=== PATIENT | female | born 1960 | race Caucasian/White ===

== ENCOUNTER 2023-06-04 08:58 | Day surgery (SDC) | payer BC, MEDICARE, SELFPAY ==
--- NOTE | 2023-06-04 | PATH_ITS ---
[facility] Accession Number: [id number] No. of containers..02 Tissue . 01 Material submitted: . PART A: sigmoid colon - SIGMOID PART B: colon - DESCENDING POLYP . 01 Diagnosis: A- COLON, SIGMOID, BIOPSY: - Tubular adenoma B- COLON, DESCENDING, POLYP BIOPSY: - Tubular adenoma - Negative for high grade dysplasia, no definitive evidence of invasion (see comment). COMMENT FOR PART B (COLON DESCENDING POLYP): Multiple levels of the polyp was examined and shows tubular adenoma without high grade dysplasia, however the dysplastic glands are pushing within the muscularis mucosa with slight stromal reaction, while there is no definitive evidence of invasion, a close follow up with colonoscopy is warranted. These findings are reported verbally to Nata Pavon at [facility] to report to Carissa Rios on 06/10/2023 at 3: 20 PM. TXN 06/10/2023 1534 Local . 01 Electronically signed: . Tawfeq MD Yamileth, Pathologist NPI- [id number] . 01 Gross description: . Part A: SIGMOID : Received in formalin are 2 fragment(s) of choe, soft tissue measuring 0.3 x 0.1 x 0.1 cm to 0.4 x 0.3 x 0.2 cm submitted entirely in 1 cassette(s) Part B: DESCENDING POLYP: Received in formalin is 1 fragment of choe soft tissue measuring 0.9 x 0.7 x 0.7 cm. Specimen is sectioned and submitted in its entirety in 1 cassette. /SILVIA 06/08/2023 1918 Local . 01 Pathologist provided ICD-10: Z12.11 . 01 CPT . 505901, [id number] Specimen Comment: A courtesy copy of this report has been sent to [phone] Performed at: 01 [facility] [address] [facility], [place], [place] [id number] MD Bharathi Espinoza MD Phone: [phone]
[2023-06-04 09:17] VITALS: BP 118/82; PULSE 67; RESP 16; TEMP 36.3; O2SAT 99; BMI 29.2
[2023-06-04] MEDS: LACTATED RINGERS 1,000 ML 150 ML IV (09:39)
--- NOTE | 2023-06-04 10:13 | PM.HP.1 ---
History of Present Illness History of Present Illness Date Patient Seen: 06/04/23 Time Patient Seen: 10:13 [place] [facility] [place]: Colon cancer screening. This is her 1st colonoscopy. She is unaware of any family history for colon cancer. She has no current symptoms PFSH Social History household members: spouse Smoking Status: Current every day smoker alcohol intake: current Meds Home Medications and Allergies Home Medications Medication Instructions Recorded Confirmed Type gabapentin 300 mg capsule 600 mg PO TID ##0 02/02/17 06/04/23 History (Neurontin) hydrochlorothiazide 12.5 mg capsule 12.5 mg PO QDAY ##0 02/02/17 06/04/23 History metoprolol tartrate 50 mg tablet 50 mg PO QDAY ##0 02/02/17 06/04/23 History sodium,potassium,mag sulfates 17.5 See Rx Instructions PO .COMPLEX 04/22/23 06/04/23 Rx gram-3.13 gram-1.6 gram oral soln #354 mL (Suprep Bowel Prep Kit) trazodone 50 mg tablet 50 - 100 mg PO ONCE PM PRN insomnia 06/04/23 06/04/23 History Allergies Allergy/AdvReac Type Severity Reaction Status Date / Time codeine [CODEINE] AdvReac Unknown Verified 06/04/23 09:39 Review of Systems Review of Systems ROS: Yes All systems reviewed with the patient and are negative except as otherwise documented Exam Vital Signs (past 8 hours): - 06/04/23 09:17 Temperature 97.4 F L Pulse Rate 67 Respiratory Rate 16 Blood Pressure 118/82 Pulse Oximetry 99 Oxygen Delivery Method Room Air Oxygen Delivery Method Room Air Const General: cooperative and healthy appearing Nutritional Appearance: well nourished [facility] Head: normocephalic and atraumatic Ears: hearing grossly normal bilaterally Eyes Sclera: sclerae normal Neck Neck: trachea midline Resp Effort & Inspection: normal respiratory effort and able to speak in complete sentences Cardio Rate: regular rate Rhythm: regular rhythm Skin General: elasticity normal and turgor normal Neuro General: patient alert, patient awake and patient oriented x3 Cranial Nerves: tongue midline Psych Mental Status: mental status grossly normal Judgment: judgment good Assessment & Plan Assessment & Plan narrative: Colon cancer screening. Colonoscopy with anesthesia Time Spent With Patient Time with patient: less than 30 minutes
--- NOTE | 2023-06-04 11:17 | PM.OP.COLON ---
Operative Date/Time/Diagnoses Date of procedure: 06/04/23 Time of procedure: 11:17 Pre-op diagnosis: Colon cancer screening Post-op diagnosis: same Procedure & Clinicians Study performed: Colonoscopy with cold forceps polypectomy and cold snare polypectomy With anesthesia Same procedure as scheduled: Yes Indications: Colon cancer screening Surgeon: Jaqueline Harper Procedure Notes Procedure in detail: Preop diagnosis: Colon cancer screening Postop diagnosis: Same Operative procedure: Colonoscopy with cold forceps polypectomy and cold snare polypectomy with anesthesia Findings: Sigmoid colon polyp approximate 0.2 cm. Descending colon polyp 1 cm in size. Moderate diverticulosis of the sigmoid colon and scant diverticuli in the right colon. Single lipoma in the ascending colon 2 cm in size, submucosal. Procedure: Patient placed in a lateral position. Rectal exam performed showing normal tone no masses. Colonoscope inserted into the rectum and advanced to ileocecal valve with minimal difficulty. Insufflation extraction scope of the above findings. Retroflex was included in the rectum. Impression: 2 polyps in the descending colon 1 taken with cold forceps that was 2 mm in size and sessile. The other is pedunculated proximally 1 cm in size taken with a cold snare. Diverticulosis in the sigmoid colon as well as the right colon. Plan: Repeat colonoscopy in 5 years unless otherwise indicated by change in clinical condition Findings: divertiulosis and polyp(s) (Two polyps in the descending colon described above) Specimen(s): other (2 descending colon polyps 1st was 2 mm taken with cold forceps, 2nd was 1 cm taken with a cold snare) Complications: none Impression: Diverticulosis of the sigmoid colon which was moderate as well as a scant diverticulosis of the right colon. To descending polyps. One lipoma of the ascending colon approximately 2 cm in size. Plan: Repeat colonoscopy in 5 years Post-procedure Recommendations: Colonoscopy in 5 years Follow up: as needed Disposition: PACU
[2023-06-04 11:23] VITALS: BP 100/75; PULSE 75; RESP 19; TEMP 37; O2SAT 97
[2023-06-04 11:28] VITALS: BP 113/68; PULSE 69; RESP 14; O2SAT 95
[2023-06-04 11:33] VITALS: BP 118/71; PULSE 66; RESP 18; O2SAT 95
[2023-06-04 11:35] VITALS: BP 114/72; PULSE 67; RESP 19; TEMP 36.7; O2SAT 96
== END 2023-06-04 11:52 | disposition home or self-care (01) ==
PROVIDERS: PCP Family Medicine; Referring Provider Surgery; Visit Provider Anesthesiology
PROC: 0DJD8ZZ Inspection of Lower Intestinal Tract, Via Natural or Artificial Opening Endoscopic (ICD-10-PCS; CPT 45378; principal; 2023-06-04 10:15)
DX: Z12.11 Encounter for screening for malignant neoplasm of colon (principal); K57.30 Diverticulosis of large intestine without perforation or abscess without bleeding; D12.5 Benign neoplasm of sigmoid colon; D12.4 Benign neoplasm of descending colon
CPT/HCPCS: 45385; 45380; J2250; J3010

== ENCOUNTER → 2023-07-22 14:42 | Outpatient (CLI) | payer MEDICARE, SELFPAY ==
--- NOTE | 2023-07-22 | DI.MG.S_ITS ---
BILATERAL DIGITAL SCREENING MAMMOGRAM 3D/2D WITH CAD: 07/22/2023 CLINICAL: Routine screening. Comparison is made to exams dated: 12/15/2017 mammogram, 10/05/2013 mammogram, and 07/22/2012 mammogram - [facility]. There are scattered areas of fibroglandular density in both breasts (category b / 25%-50% glandular tissue). Current study was also evaluated with a Computer Aided Detection (CAD) system. No significant masses, calcifications, or other findings are seen in either breast. There has been no significant interval change. IMPRESSION: NEGATIVE There is no mammographic evidence of malignancy. A 1 year screening mammogram is recommended. Based on the Tyrer Cuzick model (a risk assessment model) the patient's lifetime risk is 6.1% and her 10 year risk is 2.7%. According to the ACR, ACS, and NCCN guidelines, an annual breast MRI exam along with mammogram is recommended if the patient's lifetime risk is 20% or greater. This exam was interpreted at Station ID: [id number]. NOTE: For mammograms, a report in lay terms will be sent to the patient. Approximately 15% of breast malignancies will not be visualized mammographically. In the management of a palpable breast mass, a negative mammogram must not discourage biopsy of a clinically suspicious lesion. Electronically Signed By: Nick nava/gamaliel:07/23/2023 07:14:07 letter sent: Normal Exam ACR BI-RADS Category 1: Negative [id number]
== END ==
PROVIDERS: PCP Family Medicine; Referring Provider Family Medicine; Visit Provider Family Medicine
DX: Z12.31 Encounter for screening mammogram for malignant neoplasm of breast (principal)
CPT/HCPCS: 77063; 77067

== ENCOUNTER → 2024-09-12 10:40 | Outpatient (CLI) | payer MEDICARE, SELFPAY ==
--- NOTE | 2024-09-12 10:42 | DI.US.S_ITS ---
PROCEDURE: US PELVIC COMPLETE INDICATIONS: DYSFUNCTIONAL UTERINE BLEEDING TECHNIQUE: Real-time scanning was performed of the pelvic organs, with image documentation. Additional endovaginal scanning was necessary due to incomplete visualization of the adnexal and endometrial structures by transabdominal scanning. COMPARISON: None. FINDINGS: Uterus: Uterus is retroverted and normal in size at 7.1 x 4.9 x 4.4 cm. The myometrium is heterogeneous. The endometrium measures 13 mm combined thickness. There is a heterogeneous, vascular lesion abutting the left side of the endometrium measuring approximately 1.6 x 1.8 x 1.8 cm. This may represent a small endometrial lesion versus a submucosal uterine fibroid. Ovaries: The right ovary measures 2.2 x 1.8 x 0.9 cm, with a calculated ovarian volume of 2.0 cc. The left ovary measures 2.4 x 1.5 x 1.0 cm, with a calculated ovarian volume of 2.0 cc. The ovaries have a normal sonographic appearance. Less than 12 follicles can be seen in each ovary. No adnexal masses are seen. Other: No pathologic free abdominal or pelvic fluid. Incidental note of large postvoid residual volume of 111 mL. Bilateral ureteral jets were visualized. IMPRESSION: Heterogeneous uterus with history of abnormal uterine bleeding. If patient is postmenopausal, endometrial thickness of 13 mm is abnormal and further evaluation with endometrial sampling/biopsy is recommended. Heterogeneous, 1.6 x 1.8 cm vascular lesion within the left side of the endometrium possibly representing a submucosal uterine fibroid versus small endometrial mass. Consider follow-up pelvic ultrasound in 6-12 weeks to document persistence. Further characterization with pelvic MRI can be considered at that time. Incidental note of large postvoid residual volume of the urinary bladder measuring 111 mL. We strive to produce accurate, complete, and clear reports of imaging services. To assist us in improving patient care, this report was composed using standard report templates and voice recognition software. Therefore, it may contain abnormal punctuation, insertions and/or omissions. Occasional wrong-word or sound-alike substitutions may occur. Though we review the report and make efforts to correct it, we do recommend that the report be read carefully in proper context to recognize any text inaccuracies. Dictated by: Nick Garzon M.D. on 09/12/2024 at 19:46 Approved by: Nick Garzon M.D. on 09/12/2024 at 19:54
== END ==
LOC: US 10:41
PROVIDERS: PCP Family Medicine; Referring Provider Family Medicine; Visit Provider Family Medicine
DX: N93.8 Other specified abnormal uterine and vaginal bleeding (principal); N85.9 Noninflammatory disorder of uterus, unspecified
CPT/HCPCS: 76830; 76856

== ENCOUNTER 2024-11-28 10:48 | Day surgery (SDC) | payer MEDICARE, SELFPAY ==
[2024-11-15 07:24] VITALS: BMI 27.4
--- NOTE | 2024-11-28 | PATH_ITS ---
[facility] Accession Number: [id number] No. of containers..01 Tissue . 01 Material submitted: . endometrium - ENDOMETRIAL CURETTINGS AND POLYP . 01 Diagnosis: ENDOMETRIUM, CURETTAGE: Predominantly fragments of endometrial polyp with breakdown. Background disordered proliferative endometrium with breakdown. Negative for endometrial intraepithelial neoplasia and malignancy. MRV 12/01/2024 1158 Local . 01 Electronically signed: . Anais Astudillo DO, Pathologist NPI- [id number] . 01 Gross description: . ENDOMETRIAL CURETTINGS AND POLYP: Received in formalin are minute fragments of mucoid and hemorrhagic material measuring 2.0 x 2.0 x 0.2 cm in aggregate. Submitted in toto in 1 cassette. /SILVIA 11/29/2024 1743 Local . 01 Pathologist provided ICD-10: N94.5 . 01 CPT . 293763 Specimen Comment: A courtesy copy of this report has been sent to [phone] Performed at: 01 [facility] [address], [place], [place] [id number] MD Bharathi Espinoza MD Phone: [phone]
--- NOTE | 2024-11-28 07:36 | P.HPOB_ITS ---
History of Present Illness History of Present Illness Narrative: Mallory Lancaster (Jill) is a 63 year old female 2 para 2 with postmenopausal bleeding and a thickened endometrial lining on ultrasound. She is here for a D&C hysteroscopy. [facility] Medical History (Updated 11/15/24 @ 07:32 by Kait Purvis RN) Anxiety and depression Neuropathy HLD (hyperlipidemia) HTN (hypertension) Insomnia Surgical History (Updated 11/15/24 @ 07:32 by Kait Purvis RN) Previous back surgery (2017) Social History household members: spouse Smoking Status: Current every day smoker alcohol intake: current Meds Home Medications and Allergies Home Medications Medication Instructions Recorded Confirmed Type gabapentin 300 mg capsule 600 mg PO TID ##0 02/02/17 11/28/24 History (Neurontin) hydrochlorothiazide 12.5 mg capsule 12.5 mg PO QDAY ##0 02/02/17 11/28/24 History metoprolol tartrate 50 mg tablet 50 mg PO QDAY ##0 02/02/17 11/28/24 History alprazolam 0.25 mg tablet 0.25 mg PO BEDTIME PRN Anxiety 09/27/24 11/28/24 History medroxyprogesterone 5 mg tablet 5 mg PO DAILY Thickened 10/05/24 Rx (Provera) endometrium #30 tabs Allergies Allergy/AdvReac Type Severity Reaction Status Date / Time codeine [CODEINE] AdvReac Unknown Nausea Verified 11/28/24 11:12 Exam Narrative Exam Narrative: HEENT: No thyromegaly, no anterior cervical or supraclavicular lymphadenopathy. Lungs:Clear to auscultation bilaterally, no wheezes. Cardiovascular: Regular rate and rhythm, no murmurs, rubs, or gallops. Abdomen: No scars. No hepatosplenomegaly. No masses palpable. External genitalia: Normal Vagina: Normal Cervix: Normal Bimanual exam: 7 Week size anteverted uterus. Mobile. No adnexal masses or tenderness. Extremities: No edema Assessment & Plan Assessment & Plan narrative: Assessment: 63-year-old 2 para 2 with postmenopausal bleeding and a thickened endometrial lining on ultrasound Plan: D&C hysteroscopy with MyoSure The risks, benefits, and alternatives to the procedure were explained to the patient. The risks including bleeding, infection, and uterine perforation. She understands these risks and agrees to proceed. A full par Q was held and consent form was signed. Time-Based Coding :: [TOTAL MINUTES] spent with patient and on the chart (including review of chart, obtaining history, exam, reviewing outside data, placing orders, documenting exam and treatment plan, and counseling patient) on [DATE].
--- NOTE | 2024-11-28 07:38 | PM.PREOP ---
Pre-operative Note Interval Note History & Physical reviewed/Exam performed by Physician: Yes Changes to H&P: No H&P completed within 30 days and has changed as indicated here:: 11/28/24
[2024-11-28 11:14] VITALS: BP 131/81; PULSE 70; RESP 17; TEMP 36.3; O2SAT 96
[2024-11-28] MEDS: LACTATED RINGERS 1,000 ML 21 ML IV (11:37)
[2024-11-28] MEDS: ACETAMINOPHEN IV 1,000 MG/100 ML VIAL 400 MG IV (11:37)
[2024-11-28] MEDS: SCOPOLAMINE 1 PATCH TOP (11:38)
[2024-11-28] MEDS: ALBUTEROL/IPRATROPIUM 3 ML AMPUL INH (11:44)
[2024-11-28 12:12] VITALS: BP 124/88; BP 138/73; PULSE 61; PULSE 62; RESP 14; O2SAT 94; O2SAT 96
--- NOTE | 2024-11-28 12:23 | SUR.OPER ---
Lithotomy on padded OR bed, head on pillow, arms secured on padded arm boards at <90 degrees abduction. Legs secured in padded yellow fins stirrups.
[2024-11-28 13:06] VITALS: BP 144/91; PULSE 68; RESP 16; TEMP 36.4; O2SAT 95
--- NOTE | 2024-11-28 13:10 | PM.GYNOP.1 ---
Operative Date/Time/Diagnoses Date of procedure: 11/28/24 Time of procedure: 13:10 Pre-op diagnosis: Postmenopausal bleeding Thickened endometrial lining on ultrasound Post-op diagnosis: same Procedure & Clinicians Procedure: Procedures Operation Date: 11/28/24 12:15 Actual Procedure Side Surgeon p Hysteroscopy D&C with myosure possible polypectomy versus removal of fibroid Meenu Glasgow MD Indications: 63-year-old with postmenopausal bleeding and thickened endometrium on ultrasound Surgeon: Meenu Glasgow Anesthesia Type: General (LMA) Operative Notes Findings: 7 week size anteverted uterus Both fallopian tube ostia observed Small polyp near the right fallopian tube ostia Large polyp originating from the left cornua of the uterus Thickened endometrium at the fundus of the uterus Closure Type: not applicable Specimen(s): endometrial curettings and endometrial polyp Estimated blood loss (mL): 5 Blood products transfused: none Procedure in detail: After informed consent was obtained, the patient was taken to the operating room where she was placed in the dorsal supine position. After adequate LMA general anesthesia was achieved, she was placed in the dorsal lithotomy position, and prepped and draped in the usual sterile fashion. A time-out was performed. A bivalve speculum was placed into the vagina and the anterior lip of the cervix was grasped with a single-tooth tenaculum. The cervical os was sequentially dilated until the MyoSure hysteroscope could pass easily into the endometrial cavity. Initial inspection showed a small polyp near the right fallopian tube ostia, and the larger polyp originating from the left cornua of the uterus. Using the MyoSure Lite, both polyps were resected. The instruments were removed from the uterus. The single-tooth tenaculum was removed from the anterior lip of the cervix. The bivalve speculum was removed from the vagina. Sponge, lap, and instrument counts were correct x2. The patient tolerated the procedure well, and was taken to PACU in stable condition. 50 cc fluid deficit Max pressure 100 mmHg Cutting time 37 seconds Total fluid 468 cc Complications: none Post-operative Condition: stable Disposition: PACU Plan for aftercare: Home after recovery
[2024-11-28 13:17] VITALS: BP 138/73; PULSE 65; RESP 14; O2SAT 97
[2024-11-28] MEDS: OXYCODONE IR 5 MG TABLET PO (13:20)
[2024-11-28 13:25] VITALS: BP 121/83; PULSE 59; RESP 16; TEMP 36.6; O2SAT 97
[2024-11-28 13:27] VITALS: BP 132/74; PULSE 60; RESP 14; O2SAT 99
== END 2024-11-28 14:00 | disposition home or self-care (01) ==
LOC: AC 13:42 → OR 11-29 07:32
PROVIDERS: PCP Family Medicine; Referring Provider Obstetrics & Gynecology; Visit Provider Obstetrics & Gynecology
PROC: 0UDB8ZZ Extraction of Endometrium, Via Natural or Artificial Opening Endoscopic (ICD-10-PCS; CPT 58558; principal; 2024-11-28 12:15)
DX: N84.0 Polyp of corpus uteri (principal)
CPT/HCPCS: 58558; J0131; J1100; J1885; J2405; J2704